=== PATIENT | male | born 1960 | race Caucasian/White ===

== ENCOUNTER 2017-06-28 03:19 | Observation (INO) | payer MEDICARE ==
[2017-06-28 03:51] LABS: #Eosinphils 0.1 thou/uL (0.0-0.7); #Lymphocytes 1.2 thou/uL (1.20-3.40); #Monocytes 0.6 thou/uL (0.11-0.59); #Neutrophils 4.1 thou/uL (1.40-6.50); %Basophils 0.2 % (0.0-1.0); %Eosinophils 1.8 % (0.0-10.0); %Lymphocytes 19.5 % (21.0-51.0); %Monocytes 9.3 % (0.0-10.0); Hematocrit 47.6 % (42.0-52.0); Mean Platelet Volume 7.2 fL (7.4-10.4); Red Blood Cell (RBC) Count 4.82 mill/uL (4.70-6.10)
[2017-06-28 04:11] LABS: ALT (SGPT) 24 U/L (8-55); AST (SGOT) 17 U/L (5-34); Alkaline Phosphatase 100 U/L (40-150); Anion Gap 12 mmol/L (10-20); BUN (Urea Nitrogen) 19 mg/dL (8.4-25.7); Bilirubin, Total 0.7 mg/dL (0.2-1.2); CK (CPK) 85 U/L (30-200); Calc. Creatinine Clearance 0 mL/min (70-130); Calcium 9.4 mg/dL (7.8-10.44); Carbon Dioxide 27 mmol/L (22-29); Chloride 103 mmol/L (98-107); Estimated GFR-MDRD 82; Globulin 3.2 g/dL (2.4-3.5); Protein, Total 7.4 g/dL (6.0-8.3)
[2017-06-28 04:23] LABS: Troponin I Less than 0.010 ng/mL (< 0.028)
[2017-06-28] MEDS ORDERED: Acetaminophen 325 MG TAB PO PRN ×2 (06:00→06:09)
[2017-06-28] MEDS ORDERED: Ondansetron HCl/PF 4 MG/2 ML Vial IVP PRN (06:00)
[2017-06-28] MEDS ORDERED: Sodium Chloride 0.9% 1,000 ML IV SCH (06:00)
[2017-06-28] MEDS ORDERED: Ondansetron ODT 4 MG TAB SL PRN (06:00)
[2017-06-28] MEDS ORDERED: Ondansetron ODT 4 MG TAB PO PRN (06:09)
[2017-06-28] MEDS ORDERED: Nitroglycerin 0.4 MG TAB (25 Tab Bottle) PO PRN (06:09)
[2017-06-28 07:15] LABS: Magnesium 1.9 mg/dL (1.6-2.6)
[2017-06-28 07:20] LABS: Troponin I Less than 0.010 ng/mL (< 0.028)
[2017-06-28 07:36] LABS: Hemoglobin A1c 5.2 % (4.0-6.0)
[2017-06-28 08:02] VITALS: BMI 30.9
[2017-06-28] MEDS ORDERED: Enoxaparin Sodium 40 MG/0.4 ML SYRINGE SC SCH (09:00)
[2017-06-28] MEDS ORDERED: Aspirin 325 MG TAB PO SCH (09:00)
--- NOTE | 2017-06-28 10:08 | RAD ---
PORTABLE CHEST ONE VIEW: 06/28/2017 3:45 a.m. HISTORY: Chest pain. COMPARISON: 06/28/2015 FINDINGS: Changes of median sternotomy are again seen. A left-sided AICD remains in place. Coronary artery s tents are noted. Heart size is border. The lungs are well expanded without focal areas of consolid ation, pneumothorax, or pleural effusions. IMPRESSION: No radiographic evidence of an acute cardiopulmonary process. POS: OFF
[2017-06-28 10:35] LABS: Troponin I Less than 0.010 ng/mL (< 0.028)
--- NOTE | 2017-06-28 13:41 | HP-2 ---
CODE STATUS: FULL. ATTENDING PHYSICIAN: Christopher Benavidez MD RESIDENT: Darius Gusman MD HISTORIAN: The patient. SPECIALIST: Dr. Pereira - Cardiology. CHIEF COMPLAINT: Chest pain. HISTORY OF PRESENT ILLNESS: Raphael Doyle is a 56-year-old male with past medical history of 4-vesse l CABG and 3 prior stent placement x3 in the past, who presents with chest pain for the last 12 hour s. He described chest pain approximately 12 hours ago. He describes the pain as substernal, radiat ing to the left shoulder with associated nausea and diaphoresis. The pain occurred while sitting wa tching the news last night and occurred also later that night while walking his dog. He rates the p ain as 8-9/10. The pain subsided on its own, but he states that the pain was the exact same pain th at he had with previous heart attacks. He took four 81 mg aspirin at home and the pain was gone upo n arriving to the ER. PAST MEDICAL HISTORY: Borderline diabetes, congestive heart failure, hypertension, and hyperlipidem ia. PAST SURGICAL HISTORY: Four-vessel CABG in 2010, stent placement in 2000, pacemaker in 2011, and ch olecystectomy. ALLERGIES: No known drug allergies. MEDICATIONS: 1. Zetia 10 mg p.o. daily. 2. Aspirin 325 mg p.o. daily. 3. Carvedilol 6.25 mg p.o. daily. 4. Plavix 75 mg p.o. daily. 5. Atorvastatin 80 mg p.o. daily. 6. Famotidine 20 mg p.o. daily. 7. Sertraline 100 mg p.o. daily. 8. Furosemide 20 mg p.o. daily. 9. Tamsulosin 0.4 mg p.o. daily. 10. Fluticasone 50 mcg nasal. 11. Entresto 24/26 mg p.o. daily. SOCIAL HISTORY: Denies tobacco, alcohol, or drug use. , lives at home with his . REVIEW OF SYSTEMS: General: Denies fevers, chills, appetite, sleep, weight changes, night sweats, fatigue. Eyes: Denies vision changes or eye pain. ENT: Denies nasal congestion, rhinorrhea, sore throat. RESPIRATORY: Positive for shortness of breath. Denies cough, congestion, exercise intole barak. Cardiovascular: Positive for chest pain. Denies palpitations, edema, PND or orthopnea. Ga strointestinal: Positive for nausea. Denies vomiting, diarrhea, constipation, abdominal pain, GI b leeding. Genitourinary: Denies incontinence, dysuria, polyuria, discharge. Skin: Denies rashes, lesions, jaundice, or itching. Musculoskeletal: Denies pain, tenderness, stiffness. Neurologic: Denies weakness, numbness, syncope, seizures. Psychiatric: Denies anxiety or depression. PHYSICAL EXAMINATION: VITAL SIGNS: Blood pressure 129/76, pulse 65, respiratory rate 17, T-max 97.6, pulse ox 96% on room air, current weight is 113 kilograms. GENERAL: The patient is alert and oriented x4, in no acute distress, obese, and appropriately inter active. HEENT: Eyes, pupils equal, round, reactive to light and accommodation. Extraocular muscles intact. Conjunctivae are within normal limits. Tympanic membranes pearly randolph without bulging or erythema . Nasal mucosa and oropharynx within normal limits. NECK: Supple, without lymphadenopathy or thyromegaly. No JVD present. CARDIOVASCULAR: Regular rate and rhythm. No murmurs or gallops. Radial pulses and pedal pulses pr esent and equal bilaterally. RESPIRATORY: Normal effort, no retractions. CHEST: Lungs clear to auscultation bilaterally. SKIN: Warm and dry without cyanosis or lesions. ABDOMEN: Soft, nontender, bowel sounds x4. No masses or distention. EXTREMITIES: No clubbing, cyanosis or edema. MUSCULOSKELETAL: Structure and tone within normal limit. Full range of motion. NEUROLOGIC: No focal deficits. Sensation within normal limits. PSYCHIATRIC: Appropriate. LABORATORY DATA: White blood cell count 6.0, hemoglobin 15.8, hematocrit 47.6, MCV 98, platelets 16 7,000. Sodium 138, potassium 3.8, chloride 103, bicarbonate 27, BUN 19, creatinine 0.95, glucose 11 3, calcium 9.4, total protein 7.4, albumin 4.2, total bilirubin 0.7, AST 17, ALT 24, alkaline phosph atase 100. CK 85, CK-MB 0.9. Troponin less than 0.01. BNP 31.4. EKG showed normal sinus rhythm. ASSESSMENT AND PLAN: A 56-year-old male with past medical history of congestive heart failure, jenifer nary artery bypass graft, stents, hypertension, hyperlipidemia who presents with chest pain. 1. Chest pain, rule out. Troponin negative x1. CK-MB negative x1. Admit to tele. Continuous car diac monitoring p.r.n. O2 stress test in the morning, start aspirin, atorvastatin, Lovenox, morphin e p.r.n., Check magnesium, phosphorus, TSH, BMP, CBC, trend troponins. N.p.o. Hold beta kyra. 2. Hypertension medication rec and continue home meds after stress test. Monitor vital signs. 3. Hyperlipidemia. Continue home statin. 4. Borderline diabetes. Check hemoglobin A1c. Continue to monitor. 5. Activity: Ad linda. 6. Diet n.p.o. until after stress test. 7. Deep venous thrombosis prophylaxis, SCDS and Lovenox. DISPOSITION AND LENGTH OF HOSPITAL STAY: 1-2 days. Symptomatic medications will be provided. History and physical exam as well as management discussed with Dr. Benavidez.
[2017-06-28 15:53] VITALS: BP 134/80; TEMP 97.7
--- NOTE | 2017-06-28 16:19 | NM ---
MYOCARDIAL PERFUSION QUANTITATIVE GATED SPECT STUDY 06/28/17 Comparison made to previous exam of 06/29/15. DOSE: 27 millicuries of technetium 99m Cardiolite for the stress portion of the exam and 10.5 millicuries for the resting portion of the exam. The patient was stressed using 64.4 mg of Adenosine given IV. Images demonstrate areas of decreased perfusion on stress and resting images in the inferior and api sarika regions. No significant evidence of reversible defect seen. The findings compatible with apical and inferior areas of myocardial scar. Ejection fraction measures 32%. There is global hypokinesis s een. IMPRESSION: Areas of myocardial scar. No evidence of reversible ischemia seen. POS: [facility]
[2017-06-28] MEDS ORDERED: Atorvastatin Calcium 40 MG TAB PO SCH (21:00)
--- NOTE | 2017-06-29 07:06 | ADD-HP ---
ADDENDUM Please see the history and physical by Dr. Gusman for which I concur. The patient was seen and evalu ated and examined with the residents at bedside and case discussed. HISTORY OF PRESENT ILLNESS: This is a 56-year-old gentleman, who has known coronary artery disease including history of MIs in the past, coronary bypass graft x4 in the past, defibrillator and pacema ker placement, who comes in with some chest pain. He states it felt like when he has had angina bef ore, so he is being admitted. PAST MEDICAL HISTORY, PAST SURGICAL HISTORY, ALLERGY HISTORY, MEDICATIONS, SOCIAL HISTORY, AND REVIE W OF SYSTEMS: All per Dr. Gusman's history and physical for which I concur. PHYSICAL EXAMINATION: VITAL SIGNS: Afebrile, vital signs are stable. GENERAL: Alert and oriented x3, somewhat flat affect, in no apparent distress. ENT: Normal; specifically, conjunctivae not pale, sclerae anicteric, oropharynx clear and moist. NECK: No lymphadenopathy, thyromegaly or bruits. CHEST: Clear. CARDIOVASCULAR: Regular rate and rhythm. ABDOMEN: Benign. LABORATORY DATA: Initial blood workup really did not show any elevated troponin and otherwise is fa irly negative. ASSESSMENT AND PLAN: 1. Chest pain with history of coronary artery disease. We will certainly rule him out with serial cardiac enzymes. We will get Cardiology involved and likely get a stress test. As long as that is normal, can be discharged, but otherwise we will continue home medications for hypertension, hyperli pidemia, and borderline diabetes.
--- NOTE | 2017-06-29 21:44 | DIS-2 ---
DATE OF ADMISSION: 06/28/2017 DATE OF DISCHARGE: 06/28/2017 ADMITTING ATTENDING: Christopher Benavidez M.D. DISCHARGE ATTENDING: Christopher Benavidez M.D. RESIDENT PHYSICIAN: Margoth Richard M.D. PRIMARY DIAGNOSIS: Chest pain, likely stable angina. SECONDARY DIAGNOSES: 1. Congestive heart failure, status post pacemaker/defibrillator in 2011. 2. Hypertension. 3. Hyperlipidemia. 4. Coronary artery disease, status post 4-vessel coronary artery bypass grafting in 2010 and a sten t placement x4 in 2000. DISCHARGE MEDICATIONS: 1. Atorvastatin 80 mg p.o. daily. 2. Carvedilol 6.25 mg p.o. b.i.d. 3. Famotidine 20 mg p.o. daily. 4. Zetia 10 mg p.o. daily. 5. Clopidogrel 75 mg p.o. daily. 6. Multivitamin 1 tablet p.o. daily. 7. Flonase 1 spray each naris daily. 8. Lasix 20 mg p.o. daily. 9. Patricia 180 mg p.o. daily. 10. Entresto 24/26 mg 2 tablets p.o. daily. 11. Ecotrin 325 mg p.o. daily. 12. Flomax 0.4 mg p.o. daily. 13. Sertraline 100 mg p.o. daily. IMAGING: There was a nuclear medicine cardiac stress performed on 06/28/2017 that showed areas of m yocardial scar with no evidence of reversible ischemia seen. There was an ejection fraction estimat ed to be about 32%. LABORATORY DATA: The patient's troponins were trended throughout the hospitalization and they were less than 0.01 x3 sets. EKG: The patient had no signs of acute ischemia or ST changes on his EKG. There was evidence of ol d inferior infarct. Hemoglobin A1c was checked and found to be 5.2. HISTORY OF PRESENT ILLNESS/HOSPITAL COURSE: This is a 56-year-old male with known coronary artery d isease, status post CABG, who presented to the ER after having some atypical chest pain. The patien t stated it started at rest and then it seems to get better. He went and walked his dog and thought he was having it again. It was accompanied by diaphoresis and the patient thought it felt like his previous [facility]. The patient took 4 baby aspirin went to bed and decided to come to the ER the next mo rning. Again, the patient's troponins were trended and remained negative along with no EKG changes. It has been a while at least 2 years since the patient's last stress test. One was performed and showed no reversible ischemic changes, and the patient was therefore discharged with an encouraged t o follow up with his bulk mail clerk. The patient did mention not taking his medications for the last few weeks. The patient was encouraged to continue taking all his prescribed home medications. DISPOSITION: Stable. DISCHARGE INSTRUCTIONS: 1. Location: Home. 2. Activity: As tolerated. 3. Diet: Heart healthy. 4. Followup: Follow up with the patient's bulk mail clerk in 1 to 2 weeks.
--- NOTE | 2017-07-03 14:19 | EKG ---
Test Reason : CHEST PAIN Blood Pressure : / mmHG Vent. Rate : 068 BPM Atrial Rate : 068 BPM P-R Int : 174 ms QRS Dur : 106 ms QT Int : 432 ms P-R-T Axes : 059 006 082 degrees QTc Int : 459 ms Normal sinus rhythm Low voltage QRS Inferior infarct , age undetermined Anterolateral infarct , age undetermined No STEMI Abnormal ECG Confirmed by CITLALI PANTOJA, DRISS Arthur ([id number]), editor department EDUAR ZAMBRANO ([id number]) on 07/03/2017 2:19:22 PM Referred By: Confirmed By:DIRSS GODWIN MD
--- NOTE | 2017-07-04 13:45 | STRESS ---
Acquisition Time: 2017-06-28 12:41:20 Total Exercise Time: 00:04:00 Test Indications: CHEST PAIN Medications: Protocol: ADENOSINE Max HR: 090 BPM 55% of Pred: 163 BPM Max BP: 138/084 mmHG Max Work Load: 1.0 METS RESTING ECG: NORMAL SINUS RHYTHM AT [address] SEGMENT CHANGES AND RIGHT BUNDLE BRANCH BLOCK SYMPTOMS: CHEST PAIN AND NAUSEA NORMAL BP RESPONSE ECTOPY: NONE ECG STRESS: NO SIGNIFICANT CHANGES INTERPRETATION: NEGATIVE ECG/AWAIT NUCLEAR IMAGES FOR DEFINITIVE DIAGNOSIS Confirmed by SCOTT LANGLEY M.D. ([id number] on 07/04/2017 1:44:56 PM Referred By: MD Clayton MADRID Confirmed By:SCOTT LANGLEY M.D.
== END 2017-06-28 16:39 | disposition home or self-care (01) ==
LOC: ERS 03:19 → 2SW 05:57
PROVIDERS: ADMIT Family Medicine; ATTEND Family Medicine
DX: R07.9 Chest pain, unspecified (principal); I11.0 Hypertensive heart disease with heart failure; I50.9 Heart failure, unspecified; I25.10 Atherosclerotic heart disease of native coronary artery without angina pectoris; E78.5 Hyperlipidemia, unspecified; R73.03 Prediabetes; Z90.89 Acquired absence of other organs; Z95.5 Presence of coronary angioplasty implant and graft; Z95.1 Presence of aortocoronary bypass graft; Z95.0 Presence of cardiac pacemaker; Z79.82 Long term (current) use of aspirin; Z79.51 Long term (current) use of inhaled steroids
CPT/HCPCS: 71010; 78452; 82550; 82553; 83036; 83735; 83880; 84100; 84484 ×2; 93005; 93017; 94760; 99285; A9500; G0378; 36415; 80053; 84443; 85025; J0153; J1650

== ENCOUNTER 2018-03-19 05:57 | Day surgery (SDC) | payer MEDICARE ==
[2018-03-18 09:23] VITALS: BMI 29.8
[2018-03-19] MEDS ORDERED: PHENYLEPHRINE-NS 100 MCG/ML 10 ML SYRINGE ONE ×2 (08:52→13:53)
--- NOTE | 2018-03-19 10:47 | OP ---
DATE OF PROCEDURE: 03/19/2018 GI ENDOSCOPY NOTE SURGEON: Jean Claude Chu M.D. COMMUTATOR TESTER SURGEON: None. PROCEDURE: Esophagogastroduodenoscopy with biopsies. INDICATIONS: 1. Dyspepsia. 2. Gastroesophageal reflux disease. MEDICATIONS: See anesthesia record. FINDINGS: After discussion of the risks, benefits and alternatives of the procedure, informed consen t was obtained and witnessed. Pre-endoscopic cardiopulmonary examination was satisfactory. Timeout was performed before sedation was achieved. Sedation was achieved with anesthesia assistance in the endoscopy unit. A Pentax adult upper endoscope was placed into the oropharynx and passed through the cricopharyngeus under direct visualization. The esophageal mucosa appeared normal in the proximal, mid and distal esophagus. At the GE junction, there was a single tongue of salmon-colored mucosa ext ending only 1 cm up above the Z-line, suspicious for possible short segment Vang's esophagus. A s dedra biopsy was obtained from this area for histology. The endoscope was passed into the stomach. Forward and retroflexed views of the entire gastric mucosa were obtained. In the gastric antrum and distal body, there is some patchy erythema and friability with a few small nonbleeding erosions in th e gastric antrum. Biopsies were obtained from the gastric antrum and body to rule out H. pylori infe ction. The endoscope was then advanced through a normal appearing pylorus and into the first and sec ond portions of the duodenum which appeared normal. The upper endoscope was then completely withdraw n and the patient allowed to recover. The patient tolerated the procedure well. There were no immed iate post-procedure complications. IMPRESSION: 1. Erosive gastritis in the antrum, biopsied to rule out Helicobacter pylori. 2. Single 1 cm tongue of salmon-colored mucosa in the distal esophagus, suspicious for possible Dorado ett's esophagus. Biopsied for histology. RECOMMENDATIONS: 1. We will switch him from his H2 kyra to a daily PPI, lansoprazole 30 mg daily. 2. Follow up pathology on the gastric and esophageal biopsies. 3. Clinic follow up in 1 month.
[2018-03-19] MEDS ORDERED: Lidocaine 1% PF 5 ML VIAL ONE (13:53)
[2018-03-19] MEDS ORDERED: PROPOFOL 200 MG/20 ML VIAL ONE (13:53)
== END 2018-03-19 09:20 | disposition home or self-care (01) ==
LOC: SDC 05:57
PROVIDERS: ATTEND Internal Medicine
PROC: 0DB58ZX Excision of Esophagus, Via Natural or Artificial Opening Endoscopic, Diagnostic (ICD-10-PCS; principal; 2018-03-19)
PROC: 0DB68ZX Excision of Stomach, Via Natural or Artificial Opening Endoscopic, Diagnostic (ICD-10-PCS; 2018-03-19)
DX: K29.50 Unspecified chronic gastritis without bleeding (principal); K21.9 Gastro-esophageal reflux disease without esophagitis; E78.00 Pure hypercholesterolemia, unspecified; M19.90 Unspecified osteoarthritis, unspecified site; I25.10 Atherosclerotic heart disease of native coronary artery without angina pectoris; I50.9 Heart failure, unspecified; Z79.82 Long term (current) use of aspirin; Z79.899 Other long term (current) drug therapy; Z88.6 Allergy status to analgesic agent
CPT/HCPCS: 88305; 88312; 88313; J2001; J2704

== ENCOUNTER 2018-07-30 15:03 | Outpatient (CLI) | payer MEDICARE ==
[2018-07-30 15:56] LABS: Hemoglobin 15.4 g/dL (14.0-18.0); Mean Corpuscular HGB CONC 32.6 g/dL (32.0-36.0); Mean Corpuscular Hemoglobin 31.8 pg (27.0-31.0); Mean Corpuscular Volume 97.5 fL (78.0-98.0); Mean Platelet Volume 7.2 fL (7.4-10.4); Platelet Count 191 thou/uL (130-400); RBC Distribution Width 11.6 % (11.5-14.5); Red Blood Cell (RBC) Count 4.86 mill/uL (4.70-6.10); White Blood Cell (WBC) Count 6.1 thou/uL (4.8-10.8)
[2018-07-30 16:05] LABS: PTT 29.9 SEC (22.9-36.1); Prothrombin Time 13.4 SEC (12.0-14.7)
[2018-07-30 16:14] LABS: Anion Gap 11 mmol/L (10-20); BUN (Urea Nitrogen) 16 mg/dL (8.4-25.7); Calc. Creatinine Clearance 0 mL/min (70-130); Calcium 9.3 mg/dL (7.8-10.44); Carbon Dioxide 28 mmol/L (22-29); Chloride 103 mmol/L (98-107); Estimated GFR-MDRD 79; Glucose 111 mg/dL (70-105); Potassium 4.1 mmol/L (3.5-5.1); Sodium 138 mmol/L (136-145)
== END 2018-07-30 15:04 | disposition home or self-care (01) ==
LOC: LABBT 15:03
PROVIDERS: ATTEND Internal Medicine Cardiovascular Disease
DX: Z01.818 Encounter for other preprocedural examination (principal); I42.9 Cardiomyopathy, unspecified
CPT/HCPCS: 80048; 85027; 85610; 85730; 93005; 93010

== ENCOUNTER 2018-08-03 05:56 | Day surgery (SDC) | payer MEDICARE ==
[2018-07-30 15:15] VITALS: BMI 29.4
[2018-08-03] MEDS ORDERED: CEFAZOLIN 1 GM VIAL ONE (06:52)
[2018-08-03] MEDS ORDERED: Propofol 500 MG/50 ML VIAL ONE (07:30)
[2018-08-03] MEDS ORDERED: Midazolam HCl 2 mg/2 ml Vial ONE (08:11)
--- NOTE | 2018-08-03 11:49 | RAD ---
CHEST 1 VIEW: Date: 08/03/18 HISTORY: 58-year-old male, history of post pacemaker placement. FINDINGS: Postop midline sternotomy. Left ICD. Left-sided coronary artery vascular stents. Heart size within no rmal limits. No evidence for pneumothorax or pleural effusion. IMPRESSION: Postop midline sternotomy. Left ICD. No pneumothorax, pleural effusion, or other acute process. POS: [facility]
== END 2018-08-03 10:29 | disposition home or self-care (01) ==
LOC: CCL 05:56
PROVIDERS: ATTEND Internal Medicine Cardiovascular Disease
PROC: 0JPT0PZ Removal of Cardiac Rhythm Related Device from Trunk Subcutaneous Tissue and Fascia, Open Approach (ICD-10-PCS; principal; 2018-08-03)
PROC: 0JH608Z Insertion of Defibrillator Generator into Chest Subcutaneous Tissue and Fascia, Open Approach (ICD-10-PCS; 2018-08-03)
DX: Z45.02 Encounter for adjustment and management of automatic implantable cardiac defibrillator (principal); I25.5 Ischemic cardiomyopathy; I11.0 Hypertensive heart disease with heart failure; I50.22 Chronic systolic (congestive) heart failure; I69.354 Hemiplegia and hemiparesis following cerebral infarction affecting left non-dominant side; I25.2 Old myocardial infarction; I25.10 Atherosclerotic heart disease of native coronary artery without angina pectoris; Z95.1 Presence of aortocoronary bypass graft; Z79.02 Long term (current) use of antithrombotics/antiplatelets; Z79.82 Long term (current) use of aspirin; Z79.899 Other long term (current) drug therapy
CPT/HCPCS: 33263; 71045; C1721; J0690; J2250; J2704; J3490

== ENCOUNTER 2020-07-05 20:21 | Emergency (ER) | payer MEDICARE ==
[~2020-07-05 20:21] MED LIST: Iopamidol-370 76% 500 ML 1 ML ONE
[2020-07-05] MEDS ORDERED: HYDROcodone/Acetaminophen 10/325 mg Tablet ONE (21:58)
[2020-07-05 22:50] LABS: ALT (SGPT) 25 U/L (8-55); AST (SGOT) 16 U/L (5-34); Albumin 4.2 g/dL (3.5-5.0); Alkaline Phosphatase 107 U/L (40-110); Anion Gap 15 mmol/L (10-20); BUN (Urea Nitrogen) 18 mg/dL (8.4-25.7); Bilirubin, Total 0.6 mg/dL (0.2-1.2); Calc. Creatinine Clearance 0 mL/min (70-130); Calcium 9.1 mg/dL (7.8-10.44); Carbon Dioxide 23 mmol/L (22-29); Chloride 103 mmol/L (98-107); Estimated GFR-MDRD 81; Globulin 3.1 g/dL (2.4-3.5); Glucose 136 mg/dL (70-105); Potassium 4.7 mmol/L (3.5-5.1); Protein, Total 7.3 g/dL (6.0-8.3); Sodium 136 mmol/L (136-145)
--- NOTE | 2020-07-05 23:41 | CT ---
CT Neck Soft Tissue W Con HISTORY: Left lateral neck pain patient feels that his neck is more swollen than normal. Denies the d egree swelling, dental pain, throat pain, ear pain, fever, body aches, chills, chest pain, shortness of breath or other symptoms at this time COMPARISON: None. FINDINGS: A small mucous retention cyst versus polyp is seen in the left maxillary sinus. The parotid, submandi bular and thyroid glands are normal. No cervical lymphadenopathy seen. The aerodigestive tract appears patent. No mass or abnormally loculated fluid collection is seen. There are degenerative walsh ges in the spine. The visualized lung alcantara are clear. IMPRESSION: No significant abnormalities are seen.
== END 2020-07-05 23:58 | disposition home or self-care (01) ==
LOC: ERS 20:21
DX: S16.1XXA Strain of muscle, fascia and tendon at neck level, initial encounter (principal); I25.2 Old myocardial infarction; I10 Essential (primary) hypertension; E78.00 Pure hypercholesterolemia, unspecified; F32.9 Major depressive disorder, single episode, unspecified; Z79.899 Other long term (current) drug therapy; X58.XXXA Exposure to other specified factors, initial encounter
CPT/HCPCS: 36415; 70491; 80053; Q9967

== ENCOUNTER 2021-06-25 12:34 | Outpatient (CLI) | payer MEDICARE ==
[2021-06-26 08:57] LABS: SARS-CoV-2 PCR by NAA Not Detected (NotDetected)
== END 2021-06-25 12:35 | disposition home or self-care (01) ==
LOC: LABBT 12:34
PROVIDERS: ATTEND Internal Medicine
DX: Z01.812 Encounter for preprocedural laboratory examination (principal); Z20.822 Contact with and (suspected) exposure to COVID-19
CPT/HCPCS: U0003; U0005

== ENCOUNTER 2021-06-28 07:53 | Day surgery (SDC) | payer MEDICARE ==
[2021-06-27 10:28] VITALS: BMI 30.4
[2021-06-28] MEDS ORDERED: Lidocaine 1% PF 5 ML VIAL ONE (10:44)
[2021-06-28] MEDS ORDERED: PROPOFOL 200 MG/20 ML VIAL ONE (10:44)
== END 2021-06-28 12:06 | disposition home or self-care (01) ==
LOC: SDC 07:53
PROVIDERS: ATTEND Internal Medicine
PROC: 0DB38ZX Excision of Lower Esophagus, Via Natural or Artificial Opening Endoscopic, Diagnostic (ICD-10-PCS; principal; 2021-06-28)
PROC: 0DB78ZX Excision of Stomach, Pylorus, Via Natural or Artificial Opening Endoscopic, Diagnostic (ICD-10-PCS; 2021-06-28)
DX: K22.70 Barrett's esophagus without dysplasia (principal); K31.89 Other diseases of stomach and duodenum; Z79.02 Long term (current) use of antithrombotics/antiplatelets; Z79.82 Long term (current) use of aspirin; Z79.899 Other long term (current) drug therapy; Z95.0 Presence of cardiac pacemaker; Z95.1 Presence of aortocoronary bypass graft; Z95.5 Presence of coronary angioplasty implant and graft
CPT/HCPCS: 88305; 88342; J2704